=== PATIENT | female | born 1960 | race Asian ===

== ENCOUNTER 2018-02-27 08:21 | Outpatient (CLI) | payer BC ==
--- NOTE | 2018-02-27 09:35 | MMO ---
BILATERAL SCREENING MAMMOGRAM: History: 67-year-old female for screening mammography. Comparison: 01-21-14 FINDINGS: This study is interpreted with the assistance of computer aided detection. Bilateral MLO and CC views of the breasts show scattered fibroglandular breast tissue. There is no ev idence of suspicious mass, suspicious cluster of microcalcifications or area of architectural distort ion. IMPRESSION: BIRADS category 1 - negative. Annual screening mammography is recommended. POS: [facility]
== END 2018-02-27 08:22 | disposition home or self-care (01) ==
LOC: SCSMAMMO 08:21
PROVIDERS: ATTEND Family Medicine
DX: Z12.31 Encounter for screening mammogram for malignant neoplasm of breast (principal)
CPT/HCPCS: 77067